=== PATIENT | male | born 1995 | race Two or more races ===

== ENCOUNTER 2021-07-14 12:34 | Inpatient (IN) | payer MEDICARE, MEDICAID ==
[~2021-07-14] VITALS: Ht 177.8 cm; Wt 115.4 kg
[2021-07-14] MEDS ORDERED: SODIUM CHLORIDE 0.9% 1,000 ML IV ONE (15:30)
[2021-07-14] MEDS ORDERED: MORPHINE SULFATE 4 MG/ML SYR/VIAL IV ONE (15:30)
[2021-07-14] MEDS ORDERED: METOCLOPRAMIDE HCL 5MG/ml INJ 2ml VIAL IV ONE ×2 (15:30→17:15)
[2021-07-14 16:07] LABS: Basophils # (auto) 0.1 10 ^3/uL (0-0.2); Basophils % (auto) 0.4 % (0.0-2.0); Eosinophils # (auto) 0 10 ^3/uL (0-0.8); Hematocrit 49.9 % (41.0-53.0); Hemoglobin 17.1 g/dL (13.5-17.5); Lymphocytes # (auto) 0.9 10 ^3/uL (0.4-5.4); Lymphocytes % (auto) 4.7 % (10.0-50.0); Mean Corpuscular Hemoglobin 29.3 pg (28.0-32.0); Mean Corpuscular Hgb Conc. 34.3 g/dL (32.0-36.0); Mean Corpuscular Volume 85.4 fL (80.0-100.0); Monocytes % (auto) 4.9 % (0.0-12.0); Nucleated Red Blood Cells % 0.2 %; Red Blood Cells 5.84 10^6/uL (4.5-5.90); Red Cell Distribution Width 13.8 % (11.8-14.3); White Blood Cell 20.1 10^3/uL (4.4-10.8)
[2021-07-14 16:23] LABS: Albumin 4.2 g/dL (3.4-5.0); BUN/Creatinine Ratio 11.5; Calcium 9.6 mg/dL (8.5-10.1); Magnesium 2.1 mg/dL (1.6-2.6); Potassium 3.9 mmol/L (3.5-5.1)
[2021-07-14 16:26] LABS: Bilirubin, Total 0.5 mg/dL (0.2-1.0); Total Protein 8.1 g/dL (6.4-8.2)
[2021-07-14] MEDS ORDERED: TAMSULOSIN HYDROCHLORIDE 0.4 MG CAP PO ONE (17:15)
[2021-07-14] MEDS ORDERED: KETOROLAC TROMETH 30 MG/ML 1ML VIAL IV ONE (17:15)
[2021-07-14] MEDS ORDERED: cefTRIAXone 1GM/50ML D5W 50 ML IV ONE (17:15)
[2021-07-14] MEDS ORDERED: ONDANSETRON HCL 4 MG/2 ML VIAL IV PRN (21:00)
[2021-07-14] MEDS ORDERED: TEMAZEPAM 15 MG CAP PO PRN (21:00)
[2021-07-14] MEDS ORDERED: ACETAMINOPHEN 325 MG TAB PO PRN (21:00)
[2021-07-14] MEDS ORDERED: MORPHINE SULFATE 4 MG/ML SYR/VIAL IV PRN (21:00)
[2021-07-14] MEDS ORDERED: HYDROcodone-ACET 5/325MG TAB PO PRN (21:00)
[2021-07-15] VITALS: BP 114/84
[2021-07-15] MEDS ORDERED: LORazepam 2MG/ML-1ML VIAL IV PRN (01:00)
[2021-07-15 05:00] VITALS: BP 128/82
[2021-07-15] MEDS ORDERED: PERA1TAB PO ×2 (05:00→12:00)
[2021-07-15] MEDS ORDERED: LEVE100S9 PO (05:00)
[2021-07-15] MEDS ORDERED: MONT-8 OR (05:00)
[2021-07-15] MEDS ORDERED: ALBU108A5 IN (05:00)
[2021-07-15] MEDS ORDERED: TRAZ100T3 PO (05:00)
[2021-07-15] MEDS ORDERED: ZONI100C43 PO ×2 (05:00→12:00)
[2021-07-15] MEDS ORDERED: LACO200T PO ×4 (05:00→12:00)
[2021-07-15 06:17] LABS: Basophils # (auto) 0 10 ^3/uL (0-0.2); Basophils % (auto) 0.2 % (0.0-2.0); Eosinophils # (auto) 0.1 10 ^3/uL (0-0.8); Eosinophils % (auto) 0.8 % (0.0-7.0); Hematocrit 43.4 % (41.0-53.0); Hemoglobin 14.9 g/dL (13.5-17.5); Lymphocytes # (auto) 1.6 10 ^3/uL (0.4-5.4); Lymphocytes % (auto) 9.6 % (10.0-50.0); Mean Corpuscular Hemoglobin 29.5 pg (28.0-32.0); Mean Corpuscular Hgb Conc. 34.3 g/dL (32.0-36.0); Mean Corpuscular Volume 85.7 fL (80.0-100.0); Monocytes # (auto) 1.7 10 ^3/uL (0-1.3); Monocytes % (auto) 9.7 % (0.0-12.0); Neutrophils # (auto) 13.6 10 ^3/uL (1.6-8.6); Neutrophils % (auto) 79.7 % (37.0-80.0); Nucleated Red Blood Cells % 0.1 %; Red Blood Cells 5.07 10^6/uL (4.5-5.90); Red Cell Distribution Width 13.8 % (11.8-14.3); White Blood Cell 17.1 10^3/uL (4.4-10.8)
[2021-07-15 06:29] LABS: Potassium 3.4 mmol/L (3.5-5.1)
[2021-07-15 06:42] LABS: Albumin 3.6 g/dL (3.4-5.0); BUN/Creatinine Ratio 16.4; Bilirubin, Total 0.8 mg/dL (0.2-1.0); Calcium 8.9 mg/dL (8.5-10.1); Total Protein 6.7 g/dL (6.4-8.2)
[2021-07-15 09:00] VITALS: BP 142/64
[2021-07-15] MEDS: cefTRIAXone 1GM/50ML D5W 50 ML IV SCH (10:21)
[2021-07-15] MEDS: PANTOPRAZOLE 40 MG TAB PO SCH (10:21)
[2021-07-15] MEDS: SODIUM CHLORIDE 0.9% 1,000 ML IV SCH ×2 (11:45→22:28)
[2021-07-15] MEDS ORDERED: LEVE500T32 PO (12:00)
[2021-07-15] MEDS ORDERED: POTASSIUM CHL 20 Meq TABLET PO ONE (12:00)
[2021-07-15 12:37] VITALS: BP 146/86
[2021-07-15 16:46] VITALS: BP 138/83
[2021-07-15] MEDS: LACOSAMIDE 50 MG TAB PO SCH (17:35)
[2021-07-15 22:00] VITALS: BP 119/74
[2021-07-15] MEDS ORDERED: PERAMPANEL 12 MG PO SCH (22:00)
[2021-07-15] MEDS ORDERED: ZONISAMIDE 400 MG PO SCH (22:00)
[2021-07-15] MEDS: traZODone HCL 50 MG TAB PO SCH (22:25)
[2021-07-15] MEDS: Zonisamide 100 MG CAP PO SCH (22:26)
[2021-07-15] MEDS: levETIRAcetam 500 MG TAB PO SCH (22:27)
[2021-07-16 01:03] LABS: Urine Amorphous Crystal FEW /hpf (None Seen); Urine Bacteria NONE SEEN /hpf (None Seen); Urine Blood 3+ /uL (Negative); Urine Mucus FEW (None Seen); Urine Specific Gravity 1.015 (1.001-1.035); Urine WBC 9 /hpf (0 - 3)
[2021-07-16 05:00] VITALS: BP 128/85
[2021-07-16 06:39] LABS: Basophils # (auto) 0 10 ^3/uL (0-0.2); Basophils % (auto) 0.4 % (0.0-2.0); Eosinophils # (auto) 0.2 10 ^3/uL (0-0.8); Eosinophils % (auto) 1.4 % (0.0-7.0); Hematocrit 44.3 % (41.0-53.0); Hemoglobin 15.2 g/dL (13.5-17.5); Lymphocytes # (auto) 2.1 10 ^3/uL (0.4-5.4); Lymphocytes % (auto) 17.7 % (10.0-50.0); Mean Corpuscular Hemoglobin 29.7 pg (28.0-32.0); Mean Corpuscular Hgb Conc. 34.4 g/dL (32.0-36.0); Mean Corpuscular Volume 86.2 fL (80.0-100.0); Monocytes % (auto) 8.9 % (0.0-12.0); Neutrophils # (auto) 8.4 10 ^3/uL (1.6-8.6); Neutrophils % (auto) 71.6 % (37.0-80.0); Nucleated Red Blood Cells % 0.3 %; Red Blood Cells 5.13 10^6/uL (4.5-5.90); Red Cell Distribution Width 13.7 % (11.8-14.3); White Blood Cell 11.7 10^3/uL (4.4-10.8)
[2021-07-16] MEDS: MONTELUKAST SODIUM 10 MG TAB PO SCH (06:41)
[2021-07-16 07:16] LABS: Potassium 3.5 mmol/L (3.5-5.1)
[2021-07-16 07:25] LABS: Calcium 8.8 mg/dL (8.5-10.1)
[2021-07-16] MEDS: LACOSAMIDE 50 MG TAB PO SCH ×2 (08:00→17:23)
[2021-07-16] MEDS: cefTRIAXone 1GM/50ML D5W 50 ML IV SCH (09:00)
[2021-07-16] MEDS: PANTOPRAZOLE 40 MG TAB PO SCH (10:00)
[2021-07-16] MEDS: levETIRAcetam 500 MG TAB PO SCH ×2 (10:00→22:13)
[2021-07-16] MEDS: Zonisamide 100 MG CAP PO SCH (21:51)
[2021-07-16] MEDS ORDERED: PERAMPANEL 12 MG PO SCH (22:00)
[2021-07-16] MEDS: traZODone HCL 50 MG TAB PO SCH (22:10)
[2021-07-16 22:12] VITALS: BP 121/73
[2021-07-17 05:24] VITALS: BP 116/88
[2021-07-17] MEDS: MONTELUKAST SODIUM 10 MG TAB PO SCH (06:15)
[2021-07-17] MEDS: SODIUM CHLORIDE 0.9% 1,000 ML IV SCH (06:16)
[2021-07-17 08:30] VITALS: BP 130/94
[2021-07-17] MEDS: levETIRAcetam 500 MG TAB PO SCH (10:00)
[2021-07-17] MEDS ORDERED: CIPR250T3 PO (10:14)
[2021-07-17] MEDS: cefTRIAXone 1GM/50ML D5W 50 ML IV SCH (10:44)
[2021-07-17] MEDS: LACOSAMIDE 50 MG TAB PO SCH (10:45)
[2021-07-17] MEDS: PANTOPRAZOLE 40 MG TAB PO SCH (10:46)
== END 2021-07-17 14:45 | disposition home or self-care (01) | DRG 871 ==
LOC: ER 12:34 → OVERFLOW 20:57 → CENTRAL 23:40
PROVIDERS: ADMIT Nurse Practitioner; ATTEND Internal Medicine Geriatric Medicine
DX: A41.9 Sepsis, unspecified organism (principal); N17.0 Acute kidney failure with tubular necrosis; N13.6 Pyonephrosis; G40.909 Epilepsy, unspecified, not intractable, without status epilepticus; Z20.822 Contact with and (suspected) exposure to COVID-19; Z88.5 Allergy status to narcotic agent
CPT/HCPCS: 36415; 71046; 74176; 80048; 80053; 81001; 83690; 83735; 85025; 87040; 87086; 87426; 96365; 96375; G0378; J0696; J1885

== ENCOUNTER 2021-09-19 20:15 | Inpatient (IN) | payer MEDICARE, MEDICAID ==
[~2021-09-19] VITALS: Ht 172.7 cm; Wt 117.7 kg
[~2021-09-19 20:15] MED LIST: ALBU108A5 IN; CIPR250T3 PO; LACO200T PO; LEVE500T32 PO; MONT-8 OR; PERA1TAB PO; TRAZ100T3 PO; ZONI100C43 PO
[2021-09-19 21:45] LABS: Urine Bacteria NONE SEEN /hpf (None Seen); Urine Blood 3+ /uL (Negative); Urine Hyaline Cast FEW /lpf (0 - 2); Urine Mucus FEW (None Seen); Urine Specific Gravity 1.018 (1.001-1.035); Urine Sperm PRESENT /hpf (None Seen); Urine WBC 15 /hpf (0 - 3)
[2021-09-19 23:30] LABS: Basophils # (auto) 0.1 10 ^3/uL (0-0.2); Basophils % (auto) 0.6 % (0.0-2.0); Eosinophils # (auto) 0.1 10 ^3/uL (0-0.8); Eosinophils % (auto) 0.3 % (0.0-7.0); Hematocrit 49.1 % (41.0-53.0); Hemoglobin 16.8 g/dL (13.5-17.5); Lymphocytes # (auto) 1.7 10 ^3/uL (0.4-5.4); Lymphocytes % (auto) 9.6 % (10.0-50.0); Mean Corpuscular Hemoglobin 29.4 pg (28.0-32.0); Mean Corpuscular Hgb Conc. 34.3 g/dL (32.0-36.0); Mean Corpuscular Volume 85.8 fL (80.0-100.0); Monocytes # (auto) 1.2 10 ^3/uL (0-1.3); Monocytes % (auto) 7.1 % (0.0-12.0); Neutrophils # (auto) 14.4 10 ^3/uL (1.6-8.6); Neutrophils % (auto) 82.4 % (37.0-80.0); Nucleated Red Blood Cells % 0.1 %; Red Blood Cells 5.72 10^6/uL (4.5-5.90); Red Cell Distribution Width 13.5 % (11.8-14.3); White Blood Cell 17.5 10^3/uL (4.4-10.8)
[2021-09-19 23:50] LABS: Albumin 4.1 g/dL (3.4-5.0); Calcium 10.2 mg/dL (8.5-10.1); Potassium 3.9 mmol/L (3.5-5.1)
[2021-09-19 23:52] LABS: BUN/Creatinine Ratio 10.4
[2021-09-19 23:54] LABS: Bilirubin, Total 0.6 mg/dL (0.2-1.0); Total Protein 8.3 g/dL (6.4-8.2)
[2021-09-20] MEDS ORDERED: SODIUM CHLORIDE 0.9% 1,000 ML IV ONE (01:45)
[2021-09-20] MEDS ORDERED: cefTRIAXone 1GM/50ML D5W 50 ML IV ONE (01:45)
[2021-09-20] MEDS ORDERED: ONDANSETRON HCL 4 MG/2 ML VIAL IV ONE (01:45)
[2021-09-20] MEDS ORDERED: DOCUSATE SOD 100 MG CAP PO PRN (03:15)
[2021-09-20] MEDS ORDERED: ONDANSETRON HCL 4 MG/2 ML VIAL IV PRN (03:15)
[2021-09-20] MEDS ORDERED: ACETAMINOPHEN 325 MG TAB PO PRN (03:15)
[2021-09-20] MEDS ORDERED: KETOROLAC TROMETH 30 MG/ML 1ML VIAL IV PRN (03:15)
[2021-09-20] MEDS ORDERED: SODIUM CHLORIDE 0.9% 2,700 ML IV ONE (03:30)
[2021-09-20 05:00] VITALS: BP 130/78
[2021-09-20 05:45] LABS: Basophils # (auto) 0.1 10 ^3/uL (0-0.2); Basophils % (auto) 0.4 % (0.0-2.0); Eosinophils # (auto) 0.2 10 ^3/uL (0-0.8); Eosinophils % (auto) 1.8 % (0.0-7.0); Hematocrit 43.1 % (41.0-53.0); Hemoglobin 14.7 g/dL (13.5-17.5); Lymphocytes # (auto) 2.5 10 ^3/uL (0.4-5.4); Lymphocytes % (auto) 18.4 % (10.0-50.0); Mean Corpuscular Hemoglobin 29.5 pg (28.0-32.0); Mean Corpuscular Hgb Conc. 34.2 g/dL (32.0-36.0); Monocytes # (auto) 1.1 10 ^3/uL (0-1.3); Monocytes % (auto) 7.9 % (0.0-12.0); Neutrophils # (auto) 9.9 10 ^3/uL (1.6-8.6); Neutrophils % (auto) 71.5 % (37.0-80.0); Red Blood Cells 5.01 10^6/uL (4.5-5.90); Red Cell Distribution Width 13.7 % (11.8-14.3); White Blood Cell 13.8 10^3/uL (4.4-10.8)
[2021-09-20 06:08] LABS: Albumin 3.4 g/dL (3.4-5.0); BUN/Creatinine Ratio 11.1; Calcium 8.8 mg/dL (8.5-10.1); Potassium 3.6 mmol/L (3.5-5.1)
[2021-09-20 06:18] LABS: Bilirubin, Total 0.7 mg/dL (0.2-1.0); Total Protein 6.8 g/dL (6.4-8.2)
[2021-09-20] MEDS: LACOSAMIDE 50 MG TAB PO SCH (07:39)
[2021-09-20 08:00] VITALS: BP 120/78
[2021-09-20 08:59] VITALS: BP 120/78
[2021-09-20] MEDS: ENOXAPARIN SOD 40 MG/0.4 ML SYRINGE SC SCH (11:24)
[2021-09-20] MEDS: MONTELUKAST SODIUM 10 MG TAB PO SCH (11:24)
[2021-09-20] MEDS: levETIRAcetam 500 MG TAB PO SCH ×2 (11:24→21:04)
[2021-09-20 13:56] VITALS: BP 130/87
[2021-09-20 16:34] VITALS: BP 120/66
[2021-09-20] MEDS: SODIUM CHLORIDE 0.9% 1,000 ML IV SCH (16:58)
[2021-09-20] MEDS ORDERED: LACOSAMIDE 50 MG TAB PO SCH (17:30)
[2021-09-20 22:00] VITALS: BP 135/61
[2021-09-20] MEDS ORDERED: PERAMPANEL 12 MG PO SCH ×2 (22:00)
[2021-09-20] MEDS ORDERED: ZONISAMIDE 400 MG PO SCH (22:00)
[2021-09-20] MEDS ORDERED: Zonisamide 100 MG CAP PO SCH (22:00)
[2021-09-21 05:00] VITALS: BP 130/77
[2021-09-21 06:23] LABS: Basophils # (auto) 0.1 10 ^3/uL (0-0.2); Basophils % (auto) 0.7 % (0.0-2.0); Eosinophils # (auto) 0.2 10 ^3/uL (0-0.8); Eosinophils % (auto) 1.8 % (0.0-7.0); Hematocrit 44.7 % (41.0-53.0); Hemoglobin 15.6 g/dL (13.5-17.5); Lymphocytes # (auto) 2.7 10 ^3/uL (0.4-5.4); Lymphocytes % (auto) 23.3 % (10.0-50.0); Mean Corpuscular Hemoglobin 29.8 pg (28.0-32.0); Mean Corpuscular Hgb Conc. 34.8 g/dL (32.0-36.0); Mean Corpuscular Volume 85.4 fL (80.0-100.0); Monocytes # (auto) 0.9 10 ^3/uL (0-1.3); Monocytes % (auto) 7.9 % (0.0-12.0); Neutrophils # (auto) 7.6 10 ^3/uL (1.6-8.6); Neutrophils % (auto) 66.3 % (37.0-80.0); Nucleated Red Blood Cells % 0.1 %; Red Blood Cells 5.23 10^6/uL (4.5-5.90); Red Cell Distribution Width 13.4 % (11.8-14.3); White Blood Cell 11.4 10^3/uL (4.4-10.8)
[2021-09-21 06:38] LABS: Calcium 9.3 mg/dL (8.5-10.1); Magnesium 2.3 mg/dL (1.6-2.6); Potassium 3.7 mmol/L (3.5-5.1)
[2021-09-21 08:00] VITALS: BP 123/86
[2021-09-21] MEDS: LACOSAMIDE 50 MG TAB PO SCH (08:55)
[2021-09-21] MEDS: SODIUM CHLORIDE 0.9% 1,000 ML IV SCH (08:56)
[2021-09-21 09:00] VITALS: BP 123/86
[2021-09-21] MEDS ORDERED: cefTRIAXone 1GM/50ML D5W 50 ML IV SCH (10:00)
[2021-09-21] MEDS: ENOXAPARIN SOD 40 MG/0.4 ML SYRINGE SC SCH (10:36)
[2021-09-21] MEDS: levETIRAcetam 500 MG TAB PO SCH (10:37)
[2021-09-21] MEDS: MONTELUKAST SODIUM 10 MG TAB PO SCH (10:37)
[2021-09-21] MEDS ORDERED: CIP500T PO (12:55)
[2021-09-21 13:00] VITALS: BP 130/75
[2021-09-21 17:32] VITALS: BP_SYST 130; BP_SYST 134; BP_DIAS 58; BP_DIAS 75
== END 2021-09-21 17:39 | disposition home or self-care (01) | DRG 694 ==
LOC: ER 20:17 → OVERFLOW 09-20 03:02 → CENTRAL 09-20 04:55
PROVIDERS: ADMIT Internal Medicine; ATTEND Internal Medicine
DX: N13.2 Hydronephrosis with renal and ureteral calculous obstruction (principal); R65.10 Systemic inflammatory response syndrome (SIRS) of non-infectious origin without acute organ dysfunction; Z88.5 Allergy status to narcotic agent; D72.829 Elevated white blood cell count, unspecified; G40.909 Epilepsy, unspecified, not intractable, without status epilepticus; Z20.822 Contact with and (suspected) exposure to COVID-19; Z87.442 Personal history of urinary calculi; Z87.891 Personal history of nicotine dependence
CPT/HCPCS: 36415; 71045; 74176; 76700; 80048; 80053; 81001; 83605; 83735; 85025; 87040; 87086; 87426; 96361; 96365; G0378; J0696